=== PATIENT | female | born 1990 | race Two or more races ===

== ENCOUNTER 2024-03-25 09:23 | Emergency (ER) | payer MEDICAID ==
[~2024-03-25] VITALS: Ht 167.6 cm; Wt 71.8 kg
[2024-03-25 09:29] VITALS: TEMP 98.4
--- NOTE | 2024-03-25 10:12 | NUR ---
PT LAB RESULTS OF COVID POSITIVE. PT PLACED IN A CLOSED DOOR ROOM WITH ISOLATION CART PRESENT
[2024-03-25] MEDS: acetaminophen 325mg tablet PO ONE (11:13)
[2024-03-25] MEDS: normal saline 500ml IV soln 500 ML IV ONE (11:14)
[2024-03-25] MEDS ORDERED: NIRM1TAB9 PO (11:36)
[2024-03-25 12:10] VITALS: BP 136/78; PULSE 72; RESP 14; O2SAT 100
== END 2024-03-25 12:12 | disposition home or self-care (01) ==
LOC: ER 09:23
DX: U07.1 COVID-19 (principal); Z79.899 Other long term (current) drug therapy
CPT/HCPCS: 36415; 87502; 87503; 87811; 96360; 99283; J7030; J7040